=== PATIENT | female | born 1965 | race Hispanic/Latino ===

== ENCOUNTER 2017-11-18 12:27 | Emergency (ER) | payer BC ==
[2017-11-18] MEDS ORDERED: Sodium Chloride 0.9% 500 ML IV STA (13:06)
--- NOTE | 2017-11-18 13:11 | ED PDOC ---
Arrival/HPI - General Chief Complaint: Headache Time Seen by Provider: 11/18/17 12:50 Historian: Patient, Spouse - History of Present Illness Time/Duration: Other (2 days) Symptom Onset: Gradual Symptom Course: Worsening Quality: Aching Severity Level: Moderate Activities at Onset: Rest Associated Symptoms (Text): 11/18/17 13:08 Patient is 5 days status post partial hysterectomy with an open approach. For 2 days she complains of a headache and nausea and generalized weakness and just not feeling well. No cough congestion or URI. No dyspnea. No chest pain. No vomiting or diarrhea. No genitourinary symptoms. No rash. No fever or chills. She spoke with her MANAGER BUSINESS OPERATIONS Dr Castellon, who directed her to the emergency department. Family/Social History - Physician Review Nursing Documentation Reviewed: Yes Family/Social History: Unknown Family HX Smoking Status: Never Smoked Hx Alcohol Use: Yes Frequency of alcohol use: Socially Hx Substance Use: No Allergies/Home Meds Allergies/Adverse Reactions: Allergies Sulfa (Sulfonamide Antibiotics) Allergy (Verified 11/18/17 13:06) RASH Home Medications: Home Meds Medication Instructions Recorded Confirmed Enoxaparin [Lovenox] 40 mg SQ DAILY 11/18/17 11/18/17 Ibuprofen [Motrin] 600 mg PO Q8 11/18/17 11/18/17 Review of Systems - Physician Review All systems were reviewed & negative as marked: Yes - Review of Systems Constitutional: Fatigue. absent: Fevers Respiratory: absent: SOB, Cough, Sputum, Wheezing Cardiovascular: absent: Chest Pain, Palpitations, Syncope Gastrointestinal: Nausea. absent: Abdominal Pain, Constipation, Diarrhea, Vomiting, Anorexia Genitourinary Female: absent: Dysuria, Frequency, Hematuria Neurological: Headache. absent: Dizziness, Focal Weakness, Gait Changes, Speech Changes, Facial Droop, Disequilibrium, Seizure Physical Exam Vital Signs Temp Pulse Resp BP Pulse Ox 11/18/17 15:48 88 18 151/75 H 99 11/18/17 13:15 98.3 F 82 18 159/90 H 98 11/18/17 13:08 97.6 F 80 19 99 Temperature: Afebrile Blood Pressure: Normal Pulse: Regular Respiratory Rate: Normal Appearance: Positive for: Well-Appearing, Non-Toxic, Comfortable, Uncomfortable , Other (morbidly obese) Pain Distress: Mild Mental Status: Positive for: Alert and Oriented X 3 - Systems Exam Head: Present: Atraumatic, Normocephalic Pupils: Present: PERRL Extroacular Muscles: Present: EOMI Conjunctiva: Present: Normal Ears: Present: NORMAL TM, Normal Canal. No: Erythema Mouth: Present: Moist Mucous Membranes Pharnyx: No: ERYTHEMA, EXUDATE, TONSILS ENLARGED Neck: Present: Normal Range of Motion Respiratory/Chest: Present: Clear to Auscultation, Good Air Exchange, Decreased Breath Sounds. No: Respiratory Distress, Accessory Muscle Use Cardiovascular: Present: Regular Rate and Rhythm, Normal S1, S2. No: Murmurs Abdomen: Present: Other (Suprapubic scar is clean and dry with no signs of infection.). No: Tenderness, Distention, Peritoneal Signs, Rebound, Guarding Upper Extremity: Present: Normal Inspection. No: Cyanosis, Edema Lower Extremity: Present: Normal Inspection. No: Edema, CALF TENDERNESS Neurological: Present: GCS=15, CN II-XII Intact, Speech Normal, Motor Func Grossly Intact, Normal Sensory Function, Normal Cerebellar Funct, Gait Normal Skin: Present: Warm, Dry, Normal Color. No: Rashes Psychiatric: Present: Alert, Oriented x 3, Normal Insight, Normal Concentration Medical Decision Making ED Course and Treatment: 11/18/17 15:03 EKG shows normal sinus rhythm rate approximately 70 with low voltage and poor R waves with no acute ST or T-wave changes 11/18/17 15:56 Discussed in detail with , who will follow-up in the office in 2 days on November 20 at 9 AM. Follow-up in the ER as needed. Instructed that she can take her Percocet as needed. She has not taken any at all to this point. Prescription for Zofran given. Workup is unremarkable. Symptoms have improved. - Lab Interpretations Lab Results: 11/18/17 13:58 11/18/17 13:58 Lab Results 11/18/17 13:58: Sodium 139, Potassium 4.0, Chloride 104, Carbon Dioxide 28, Anion Gap 11, BUN 9, Creatinine 0.6 L, Est GFR ( Amer) > 60, Est GFR (Non -Af Amer) > 60, Random Glucose 94, Calcium 9.7, Magnesium 2.0, Total Bilirubin 0.5, AST 25, ALT 42, Alkaline Phosphatase 68, Lactate Dehydrogenase 600, Total Creatine Kinase 45, Troponin I < 0.01, Total Protein 6.9, Albumin 3.6, Globulin 3.2, Albumin/Globulin Ratio 1.1 11/18/17 13:58: Urine Color Yellow, Urine Appearance Clear, Urine pH 6.5, Ur Specific [place] 1.020, Urine Protein Negative, Urine Glucose (UA) Negative, Urine Ketones Negative, Urine Blood Small H, Urine Nitrate Negative, Urine Bilirubin Negative, Urine Urobilinogen 0.2, Ur Leukocyte Esterase Trace H, Urine RBC 0 - 2, Urine WBC 1 - 3, Ur Epithelial Cells 3 - 4, Urine Bacteria Few 11/18/17 13:58: WBC 5.9, RBC 3.91, Hgb 10.7 L, Hct 32.3 L, MCV 82.6, MCH 27.4, MCHC 33.1, RDW 13.5, Plt Count 258, MPV 9.9, Gran % 60.3, Lymph % (Auto) 29.4, [place] % (Auto) 6.5 H, Eos % (Auto) 3.6, Baso % (Auto) 0.2, Gran # 3.54, Lymph # ( Auto) 1.7, [place] # (Auto) 0.4, Eos # (Auto) 0.2, Baso # (Auto) 0.01 - RAD Interpretation Radiology Orders: 11/18/17 13:06 HEAD W/O CONTRAST [CT] Stat CHEST PORTABLE [RAD] Stat CT scan of the head as read by the radiologist shows no acute findings. X-ray chest 1 view as read by the radiologist is unremarkable. Financial Analysis Manager: Radiologist - Medication Orders Current Medication Orders: Discontinued Medications Sodium Chloride (Sodium Chloride 0.9%) 500 mls @ 1,000 mls/hr IV .Q30M STA Stop: 11/18/17 13:35 Last Admin: 11/18/17 13:40 Dose: 1,000 mls/hr eMAR Start Stop Document 11/18/17 13:40 TAVON (Rec: 11/18/17 14:06 TAVON [id number]) Intravenous Solution Start Date 11/18/17 Start Time 13:40 End Date 11/18/17 End time 14:40 Total Infusion Time 60 Ketorolac Tromethamine (Toradol) 15 mg IVP ONCE ONE Stop: 11/18/17 13:08 Last Admin: 11/18/17 14:03 Dose: 15 mg MAR Pain Assessment Document 11/18/17 14:03 [facility] (Rec: 11/18/17 14:03 [id number] Pain Reassessment Is this a pain reassessment? No Sleep Is patient sleeping during reassessment? No Presence of Pain Presence of Pain Yes IVP Administration Document 11/18/17 14:03 [facility] (Rec: 11/18/17 14:03 [id number] Charges for Administration # of IVP Administrations 1 Ondansetron HCl (Zofran Inj) 4 mg IVP ONCE ONE Stop: 11/18/17 13:08 Last Admin: 11/18/17 14:00 Dose: 4 mg IVP Administration Document 11/18/17 14:00 [facility] (Rec: 11/18/17 14:05 [id number] Charges for Administration # of IVP Administrations 1 Disposition/Present on Arrival - Present on Arrival Any Indicators Present on Arrival: No History of DVT/PE: No History of Uncontrolled Diabetes: No Urinary Catheter: No History of Decub. Ulcer: No - Disposition Have Diagnosis and Disposition been Completed?: Yes Diagnosis: Headache, Nausea Disposition: HOME/ ROUTINE Disposition Time: 15:58 Patient Plan: Discharge Condition: IMPROVED Discharge Instructions (ExitCare): Headache, Adult, Nausea and Vomiting, Adult (DC) Additional Instructions: follow-up with in 2 days at 9 AM. You may take the Percocet as already prescribed to you. Follow-up in the ER as needed. Prescriptions: Ondansetron [Zofran Odt] 4 mg SL Q6 #20 odt Forms: [employer] ([place])
[2017-11-18 13:13] VITALS: O2SAT 99; BMI 53.3
[2017-11-18 14:03] LABS: BASO # 0.01 K/mm3 (0.0-2.0); BASO % 0.2 % (0.0-3.0); EOS # 0.2 (0.0-0.7); EOS % 3.6 % (1.5-5.0); GRAN # 3.54 (1.4-6.5); GRAN % 60.3 % (50.0-68.0); HEMOGLOBIN 10.7 g/dL (12.0-16.0); LYMPH # 1.7 (1.2-3.4); LYMPH % 29.4 % (22.0-35.0); MEAN CELL VOLUME 82.6 fl (80.0-105.0); MEAN CORPUSCULAR HEMOGLOBIN 27.4 pg (25.0-35.0); MEAN CORPUSCULAR HGB CONC 33.1 g/dl (31.0-37.0); MEAN PLATELET VOLUME 9.9 fl (7.0-11.0); MONO # 0.4 (0.1-0.6); MONO % 6.5 % (1.0-6.0); PH,URINE 6.5 (4.7-8.0); RBC 3.91 10^6/uL (3.5-6.1); RED CELL DISTRIBUTION WIDTH 13.5 % (11.5-14.5); URINE BILIRUBIN NEGATIVE (NEGATIVE); URINE BLOOD SMALL (NEGATIVE); URINE GLUCOSE (UA) NEGATIVE (NEGATIVE); URINE LEUKOCYTE ESTERASE TRACE Leu/uL (NEGATIVE); URINE PROTEIN NEGATIVE mg/dL (<30 mg/dL); URINE UROBILINOGEN 0.2 E.U./dL (<1 E.U./dL); WHITE BLOOD COUNT 5.9 10^3/ul (4.5-11.0)
[2017-11-18 14:04] LABS: URINE APPEARANCE CLEAR (CLEAR); URINE COLOR YELLOW (YELLOW)
[2017-11-18 14:14] LABS: ALB/GLOB RATIO 1.1 (1.1-1.8); ALBUMIN 3.6 g/dL (3.0-4.8); ALT/SGPT 42 U/L (7-56); AST/SGOT 25 U/L (14-36); BLOOD UREA NITROGEN 9 mg/dL (7-21); CALCIUM 9.7 mg/dL (8.4-10.5); GFR AFRICAN-AMERICAN > 60; GFR NON-AFRICAN AMERICAN > 60
[2017-11-18 14:16] LABS: URINE BACTERIA FEW (NEG); URINE RBC 0 - 2 /hpf (0-2)
[2017-11-18 14:25] LABS: TROPONIN I < 0.01 ng/mL
--- NOTE | 2017-11-18 15:25 | CT ---
PROCEDURE: CT HEAD WITHOUT CONTRAST. HISTORY: [place] COMPARISON: None available. TECHNIQUE: Axial computed tomography images were obtained through the head/brain without intravenous contrast. Radiation dose: Total exam DLP = 869 mGy-cm. This CT exam was performed using one or more of the following dose reduction techniques: Automated exposure control, adjustment of the mA and/or kV according to patient size, and/or use of iterative reconstruction technique. FINDINGS: HEMORRHAGE: No intracranial hemorrhage. BRAIN: No mass effect or edema. No atrophy or chronic microvascular ischemic changes. VENTRICLES: Unremarkable. No hydrocephalus. CALVARIUM: Unremarkable. PARANASAL SINUSES: Unremarkable as visualized. No significant inflammatory changes. MASTOID AIR CELLS: Unremarkable as visualized. No inflammatory changes. OTHER FINDINGS: None. IMPRESSION: No acute findings
--- NOTE | 2017-11-18 15:28 | RAD ---
HISTORY: weakness COMPARISON: No prior. FINDINGS: LUNGS: No active pulmonary disease. PLEURA: No significant pleural effusion identified, no pneumothorax apparent. CARDIOVASCULAR: Normal. Mild vascular congestion OSSEOUS STRUCTURES: No significant abnormalities. VISUALIZED UPPER ABDOMEN: Normal. OTHER FINDINGS: None. IMPRESSION: No active disease.
[2017-11-18 15:48] VITALS: BP 151/75; PULSE 88; RESP 18
[2017-11-18 16:40] VITALS: TEMP 98.3
--- NOTE | 2017-11-19 00:33 | CARD ---
APPROVED REPORT EKG Measurement Heart [id number] <Conclusion> Normal sinus rhythm Low voltage QRS Cannot rule out Anterior infarct, age undetermined Abnormal ECG
== END 2017-11-18 17:11 | disposition home or self-care (01) ==
LOC: ED 12:27
DX: R51 Headache (principal); R11.0 Nausea
CPT/HCPCS: 70450; 71045; 80053; 81001; 82550; 83615; 83735; 84484; 85025; 87040; 87086; 93005; 96361; 96374; 96375; 99285; J1885; J2405; J7040